=== PATIENT | male | born 1980 | race Caucasian/White ===

== ENCOUNTER 2022-07-03 11:03 | Observation (INO) ==
[2022-07-03] MEDS ORDERED: Iopamidol - 370 500 ML MLS IVP ONE (12:37)
[2022-07-03] MEDS ORDERED: Morphine Sulfate 2 MG/ML SYRINGE IVP ONE (12:38)
[2022-07-03] MEDS ORDERED: Ondansetron 4 MG/2 ML VIAL IVP ONE (12:38)
[2022-07-03 12:52] LABS: Basophils % 0.7 %; Eosinophils # 0.1 K/mcL (0.0-0.6); Eosinophils % 1.5 %; Hematocrit 45.6 % (37.5-50.1); Hemoglobin 15.8 g/dL (12.9-16.9); Immature Granulocytes % 0.2 % (0-4); Lymphocytes # 1.7 K/mcL (0.6-4.6); Lymphocytes % 27.6 %; Mean Corpuscular HGB Conc 34.6 g/dL (31.6-35.5); Mean Corpuscular Hemoglobin 34.5 pg (28.0-33.3); Mean Corpuscular Volume 99.6 fL (83.0-100.0); Mean Platelet Volume 9.8 fL (9.4-12.4); Monocytes # 0.5 K/mcL (0.0-1.3); Monocytes % 8.2 %; Neutrophils # 3.7 K/mcL (1.6-8.9); Platelet Count 191 K/mcL (140-400); Red Blood Count 4.58 M/mcL (4.19-5.50); Red Cell Distribution Width 16.3 % (11.5-14.5); Segmented Neutrophils % 61.8 %
[2022-07-03 13:12] LABS: BUN/Creatinine Ratio 6 (6-26); Blood Urea Nitrogen 5 mg/dL (6-20); Calcium 8.1 mg/dL (8.6-10.3); Carbon Dioxide 30 mEq/L (23-29); Chloride 100 mEq/L (98-107); Glucose 122 mg/dL (70-105); Osmolality,Calculated 291 (280-300); Potassium 2.9 mEq/L (3.5-5.1); Sodium 141 mEq/L (136-145); Troponin I < 0.03 ng/mL (< 0.04)
[2022-07-03] MEDS ORDERED: POTASSIUM CHLORIDE IN 0.9%NACL 40 MEQ/1,000 ML IV.SOLN IV ONE (14:26)
[2022-07-03] MEDS ORDERED: 0.9 % Sodium Chloride 500 ML IVC ONE (15:11)
[2022-07-03] MEDS ORDERED: Aspirin 81 MG TAB.CHEW PO ONE (15:43)
[2022-07-03] MEDS ORDERED: *HR* Heparin 5,000 UNIT/ML VIAL IVP PRN (16:39)
[2022-07-03] MEDS ORDERED: Nitroglycerin 0.4 MG TAB.SUBL SL PRN (16:39)
[2022-07-03] MEDS ORDERED: *HR* Heparin 5,000 UNIT/ML VIAL IVP ONE (16:39)
[2022-07-03] MEDS: Nicotine 21 MG PATCH.TD24 TD SCH (17:32)
[2022-07-03] MEDS: Heparin 25,000UNIT/250ML 1/2NS 25,000 UNIT/250 ML IV.SOLN IVC SCH (17:36)
[2022-07-03 17:47] LABS: Magnesium 1.1 mg/dL (1.6-2.6)
[2022-07-03 17:48] LABS: Troponin I < 0.03 ng/mL (< 0.04)
[2022-07-03 18:02] LABS: Thyroid Stimulating Hormone 0.844 mcIU/mL (0.340-5.600)
[2022-07-04 01:53] LABS: Eosinophils # 0.1 K/mcL (0.0-0.6); Eosinophils % 2.4 %; Hematocrit 41.1 % (37.5-50.1); Immature Granulocytes % 0.2 % (0-4); Lymphocytes # 1.8 K/mcL (0.6-4.6); Lymphocytes % 42.6 %; Mean Corpuscular HGB Conc 33.6 g/dL (31.6-35.5); Mean Corpuscular Hemoglobin 34.1 pg (28.0-33.3); Mean Corpuscular Volume 101.5 fL (83.0-100.0); Mean Platelet Volume 10.1 fL (9.4-12.4); Monocytes # 0.4 K/mcL (0.0-1.3); Monocytes % 8.9 %; Neutrophils # 1.9 K/mcL (1.6-8.9); Platelet Count 165 K/mcL (140-400); Red Blood Count 4.05 M/mcL (4.19-5.50); Red Cell Distribution Width 16.4 % (11.5-14.5); Segmented Neutrophils % 44.9 %; White Blood Count 4.2 K/mcL (4.3-11.1)
[2022-07-04 02:01] LABS: Hemoglobin 13.8 g/dL (12.9-16.9)
[2022-07-04] MEDS: *HR* Heparin 5,000 UNIT/ML VIAL IVP PRN ×2 (02:30→10:10)
[2022-07-04 02:33] LABS: Estimated Average Glucose 108 mg/dl; Hemoglobin A1C 5.4 %
[2022-07-04 02:44] LABS: BUN/Creatinine Ratio 10 (6-26); Blood Urea Nitrogen 8 mg/dL (6-20); Calcium 7.7 mg/dL (8.6-10.3); Carbon Dioxide 28 mEq/L (23-29); Chloride 104 mEq/L (98-107); Glucose 122 mg/dL (70-105); Magnesium 1.2 mg/dL (1.6-2.6); Osmolality,Calculated 296 (280-300); Potassium 3.1 mEq/L (3.5-5.1); Sodium 143 mEq/L (136-145); Troponin I < 0.03 ng/mL (< 0.04)
[2022-07-04] MEDS: Aspirin 81 MG TAB.CHEW PO SCH (09:17)
[2022-07-04] MEDS: Nicotine 21 MG PATCH.TD24 TD SCH (09:17)
[2022-07-04] MEDS ORDERED: *HR* Labetalol 20 MG/4 ML SYRINGE IVP PRN (12:37)
[2022-07-04] MEDS: Isosorbide MONOnitrate (24 HR) 30 MG TAB.ER.24H PO SCH (12:44)
[2022-07-04] MEDS ORDERED: GI Cocktail 40 ML EACH PO ONE (13:18)
[2022-07-04] MEDS: Heparin 25,000UNIT/250ML 1/2NS 25,000 UNIT/250 ML IV.SOLN IVC SCH (14:52)
[2022-07-04] MEDS ORDERED: 0.9 % Sodium Chloride 2,000 ML ONE (15:13)
[2022-07-04] MEDS ORDERED: *HR* Midazolam HCl 2 MG/2 ML VIAL ONE (15:13)
[2022-07-04] MEDS ORDERED: Nitroglycerin 1,000 MCG/5 ML VIAL IV ONE (15:13)
[2022-07-04] MEDS ORDERED: *HR* Heparin 10,000 UNIT/10 ML VIAL ONE (15:13)
[2022-07-04] MEDS ORDERED: Iopamidol - 370 200 ML INFUS..BTL ONE (15:13)
[2022-07-04] MEDS ORDERED: *HR* FentaNYL (PF) 100 MCG/2 ML VIAL ONE (15:13)
[2022-07-04] MEDS ORDERED: Heparin 1,000 UNITS/500 mL 500 ML ONE (15:13)
[2022-07-04] MEDS ORDERED: Acetaminophen 325 MG TABLET PO PRN (17:18)
[2022-07-04] MEDS ORDERED: Iopamidol - 370 500 ML MLS IVP ONE (18:32)
[2022-07-04] MEDS: Acetaminophen/Butalbital/CaffeineTABLET PO PRN (18:50)
[2022-07-04] MEDS: Morphine Sulfate 2 MG/ML SYRINGE IVP PRN (21:28)
[2022-07-05] MEDS: Acetaminophen/Butalbital/CaffeineTABLET PO PRN ×2 (01:02→07:27)
[2022-07-05] MEDS: Morphine Sulfate 2 MG/ML SYRINGE IVP PRN (01:58)
[2022-07-05 07:04] VITALS: PULSE 69
[2022-07-05] MEDS: Aspirin 81 MG TAB.CHEW PO SCH (07:27)
[2022-07-05] MEDS: Isosorbide MONOnitrate (24 HR) 30 MG TAB.ER.24H PO SCH (07:27)
[2022-07-05] MEDS: Nicotine 21 MG PATCH.TD24 TD SCH (07:30)
[2022-07-05 09:06] LABS: BUN/Creatinine Ratio 12 (6-26); Blood Urea Nitrogen 8 mg/dL (6-20); Calcium 7.4 mg/dL (8.6-10.3); Carbon Dioxide 29 mEq/L (23-29); Chloride 105 mEq/L (98-107); Glucose 85 mg/dL (70-105); Magnesium 1.6 mg/dL (1.6-2.6); Osmolality,Calculated 288 (280-300); Potassium 3.3 mEq/L (3.5-5.1); Sodium 140 mEq/L (136-145)
[2022-07-05] MEDS ORDERED: SUMAtriptan succinate 25 MG TABLET PO ONE (10:15)
[2022-07-05 10:36] VITALS: BP 149/86; TEMP 97.7; O2SAT 97
== END 2022-07-05 13:32 | disposition home or self-care (01) ==
LOC: EMEROOARM 11:03 → 3BNU 11:03
PROVIDERS: ADMIT Internal Medicine; ATTEND Internal Medicine